=== PATIENT | female | born 1960 | race African-American/Black ===

== ENCOUNTER 2018-05-03 13:36 | Emergency (ER) | payer OTHER ==
[~2018-05-03] VITALS: Ht 180.3 cm; Wt 168.7 kg
[~2018-05-03 13:36] MED LIST: ACETAMINOPHEN325 M1 PO; ASPIRIN EC325 M1 PO; ASPIRIN EC81 M1 PO; BISMATROL262 MG/15 PO; CIPRO250 M1 PO; LISINOPRIL20 MG PO; NOHOMEMEDICATIONS; TRAZODONE HCL PO; XANAX 0.5 MG0.5 MG PO
[2018-05-03 14:35] LABS: URINE BILIRUBIN NEGATIVE (Negative); URINE BLOOD NEGATIVE (Negative); URINE CLARITY CLEAR; URINE COLOR YELLOW; URINE GLUCOSE-RANDOM* NEGATIVE (Negative); URINE KETONES NEGATIVE (Negative); URINE LEUKOCYTES-REFLEX NEGATIVE (Negative); URINE NITRITE-REFLEX NEGATIVE (Negative); URINE PROTEIN (DIPSTICK) NEGATIVE (Negative); URINE SPECIFIC GRAVITY 1.025 (1.005-1.035); URINE UROBILINOGEN 0.2 E.U./dl (0.2-1.0)
[2018-05-03] MEDS ORDERED: MOBIC15 MG PO (14:57)
[2018-05-03] MEDS ORDERED: VOLTAREN GEL 1100 G2 TOP (14:57)
[2018-05-03 15:12] VITALS: BP 154/61
== END 2018-05-03 15:12 | disposition home or self-care (01) ==
LOC: ER 13:36
PROVIDERS: Physician Assistant
DX: M25.561 Pain in right knee (principal); M25.562 Pain in left knee; N39.41 Urge incontinence; J44.9 Chronic obstructive pulmonary disease, unspecified; K21.9 Gastro-esophageal reflux disease without esophagitis; F32.9 Major depressive disorder, single episode, unspecified; Z87.891 Personal history of nicotine dependence; Z88.5 Allergy status to narcotic agent; Z91.041 Radiographic dye allergy status; Z88.0 Allergy status to penicillin; Z86.73 Personal history of transient ischemic attack (TIA), and cerebral infarction without residual deficits; Z98.890 Other specified postprocedural states